=== PATIENT | male | born 1970 | race Caucasian/White ===

== ENCOUNTER 2017-11-25 10:11 | Emergency (ER) | payer SELFPAY ==
[~2017-11-25] VITALS: Ht 185.4 cm; Wt 75.0 kg
[2017-11-25 10:13] VITALS: BP 148/82; PULSE 115; RESP 18; TEMP 98.3; O2SAT 97
--- NOTE | 2017-11-25 10:31 | PD ---
HPI Chief Complaint: Injury Time Seen by Provider: 10:28 Travel History International Travel<30 days: No Contact w/Intl Traveler<30days: No Traveled to known affect area: No History of Present Illness HPI 47-year-old male comes in with 2 complaints. Patient states he stepped off a curb wrong 2 days ago causing his left foot and ankle to become painful, swelling, with ecchymosis. He is able to bear weight with a severe limp. Pain is 8 out of 10. Patient is also developed left lower jaw pain and swelling from dental issues over the past 24 hours. He denies difficulty swallowing, fever, or chills. Patient denies drainage. He has sensitivity to hot and cold. Patient has had dental abscesses in the past. Dental pain is 8 out of 10 as well. He has no known drug allergies PFSH Past Medical History Respiratory: Yes (COPD) Social History Alcohol Use: Yes Tobacco Use: Yes Substance Use: Yes Allergies-Medications (Allergen,Severity, Reaction): Coded Allergies: No Known Allergies (Unverified , 11/25/17) Review of Systems Except as stated in HPI: all other systems reviewed are Neg General / Constitutional: No: Fever, Chills Eyes: No: Visual changes HENT: Positive: Dental Difficulties, No: Headaches, Vertigo, Lightheadedness, Sore Throat, Rhinitis, Rhinorrhea, Congestion, Nosebleed, Neck Stiffness, Neck Pain, Masses, Gingival Bleeding, Ear Discharge, Earache Cardiovascular: No: Chest Pain or Discomfort Respiratory: No: Shortness of Breath Gastrointestinal: No: Abdominal Pain Genitourinary: No: Dysuria Musculoskeletal: Positive: Arthralgias, Limited ROM, Pain Skin: No Rash Neurologic: No: Weakness Psychiatric: No: Depression Endocrine: No: Polydipsia Hematologic/Lymphatic: No: Easy Bruising Physical Exam Narrative GENERAL: Patient appears in mild to moderate distress. SKIN: Warm and dry. Normal color. Normal turgor. Patient has ecchymosis to the left heel and foot. HEAD: Atraumatic. Normocephalic. EYES: Pupils equal and round. No scleral icterus. No injection or drainage. ENT: No nasal bleeding or discharge. Mucous membranes pink and moist. Patient has obvious swelling to the left lower anterior jaw with severe caries and missing teeth in the #17 through #20 tooth. Gingival swelling is noted. There is no significant lymphadenopathy. Pharynx is clear. Airways patent. NECK: Trachea midline. Supple without significant lymphadenopathy. CARDIOVASCULAR: Regular rate and rhythm. RESPIRATORY: No accessory muscle use. Clear to auscultation. Breath sounds equal bilaterally. GASTROINTESTINAL: Abdomen soft, non-tender, nondistended. Hepatic and splenic margins not palpable. MUSCULOSKELETAL: Extremities without clubbing, cyanosis, or edema. No obvious deformities. Patient has pain and swelling to the left foot and ankle suggestive of possible fracture with localized ecchymosis. No obvious deformity is noted however. Exam is limited secondary to patient's pain. He is neurovascularly intact distally. Range of motion is intact although limited by pain. NEUROLOGICAL: Awake and alert. No obvious cranial nerve deficits. Motor grossly within normal limits. Five out of 5 muscle strength in the arms and legs. Normal speech. PSYCHIATRIC: Appropriate mood and affect; insight and judgment normal. Data Data Last Documented VS Vital Signs Date Time Temp Pulse Resp B/P (MAP) Pulse Ox O2 Delivery O2 Flow Rate FiO2 11/25/17 10:13 98.3 115 18 148/82 (104) 97 Orders Orders Ankle, Complete ([id number]) (11/25/17 10:31) Foot, Complete ([id number]) (11/25/17 10:31) Ice/Cold Pack (11/25/17 10:31) Ketorolac Inj (Toradol Inj) (11/25/17 10:45) Penicillin V Potassium (Veetids) (11/25/17 10:45) Splint Or Brace Apply/Monitor (11/25/17 12:00) MDM Medical Decision Making Medical Screen Exam Complete: Yes Emergency Medical Condition: Yes Differential Diagnosis Trip and fall. Left ankle sprain. Left foot sprain. Possible fracture. Left lower jaw dental abscess. Narrative Course Patient is medically stable at time of exam Ice pack is applied to the injured area and patient is given Toradol 60 mg IM for pain. Patient is given Pen-Vee K 1000 mg p.o. now. X-rays of the left ankle and foot are ordered. X-ray both the ankle and the foot are negative for acute fracture or dislocation. Patient was placed in Laith bandage and ankle stirrup splint for support. Patient is continued on Pen-Vee K 500 mg 4 times daily for 10 days. Patient also given ibuprofen 800 mg 3 times daily #60. Patient also given Magic mouthwash as directed every 2 hours as needed dental pain 120 mL's with 1 refill. Patient to follow with dental resources as soon as possible. Patient can return with worsening symptoms as needed. Diagnosis Primary Impression: Moderate left ankle sprain Qualified Codes: S93.402A - Sprain of unspecified ligament of left ankle, initial encounter Additional Impression: Dental abscess Patient Instructions: Ankle Stirrup Splint (ED), Dental Abscess (ED), General Instructions Additional Instructions: X-ray both the ankle and the foot are negative for acute fracture or dislocation. Patient was placed in Laith bandage and ankle stirrup splint for support. Patient is continued on Pen-Vee K 500 mg 4 times daily for 10 days. Patient also given ibuprofen 800 mg 3 times daily #60. Patient also given Magic mouthwash as directed every 2 hours as needed dental pain 120 mL's with 1 refill. Patient to follow with dental resources as soon as possible. Patient can return with worsening symptoms as needed. Med/Other Pt SpecificInfo: Prescription(s) given Scripts Ibuprofen (Ibuprofen) 800 Mg Tab 800 MG PO Q8H Y for Pain/Inflammation, #60 TAB 0 Refills Prov: Misha Gonzalez MD 11/25/17 Penicillin V Potassium (Penicillin V Potassium) 500 Mg Tab 500 MG PO Q6H for Infection for 10 Days, #40 TAB 0 Refills Prov: Misha Gonzalez MD 11/25/17 Disposition: 01 DISCHARGE HOME Condition: Stable Ector Yu Nov 25, 2017 10:31
[2017-11-25] MEDS ORDERED: PENICILLIN V POTASSIUM 500 MG TAB PO ONE (10:45)
[2017-11-25] MEDS ORDERED: KETOROLAC TROMETHAMINE 60 MG/2 ML (IM) VIAL IM ONE (10:45)
--- NOTE | 2017-11-25 11:41 | RADRPT ---
EXAM DATE/TIME: 11/25/2017 11:23 [facility] COMPARISON: No previous studies available for comparison. INDICATIONS : Left foot bruising and swelling lateral side of foot MEDICAL HISTORY : None. SURGICAL HISTORY : None. ENCOUNTER: Initial ACUITY: 1 day PAIN SCORE: 8/10 LOCATION: Left foot FINDINGS: Three view examination of the left foot demonstrates no soft tissue swelling, dislocation, or fractur e. The tarsal bones appear intact. The interphalangeal and metatarsophalangeal joints are intact. The calcaneus is intact. Bony mineralization is normal. CONCLUSION: Unremarkable examination of the left foot. Zheng Rebolledo MD on November 25, 2017 at 11:39 Board Certified Radiologist. This report was verified electronically.
--- NOTE | 2017-11-25 11:42 | RADRPT ---
EXAM DATE/TIME: 11/25/2017 11:21 [facility] COMPARISON: FOOT LEFT COMPLETE ([id number]), November 25, 2017, 11:23. INDICATIONS : Left ankle pain with bruising and swelling lateral side MEDICAL HISTORY : None. SURGICAL HISTORY : None. ENCOUNTER: Initial ACUITY: 1 day PAIN SCORE: 8/10 LOCATION: Left ankle FINDINGS: Bone density is normal. Ankle mortise is approximated. Slight soft tissue swelling is seen laterally. A well corticated nonacute appearing ossific density is seen adjacent to the distal fibula. No acute fracture identified. CONCLUSION: Mild soft tissue swelling. Zheng Rebolledo MD on November 25, 2017 at 11:39 Board Certified Radiologist. This report was verified electronically.
[2017-11-25] MEDS ORDERED: PENI500T PO (12:02)
[2017-11-25] MEDS ORDERED: IBUP1TAB7 PO (12:02)
[2017-11-25] MEDS ORDERED: MAGICADU2 SWISH-SPIT (12:05)
== END 2017-11-25 12:17 | disposition home or self-care (01) ==
LOC: NEPD 10:11
DX: S93.402A Sprain of unspecified ligament of left ankle, initial encounter (principal); K04.7 Periapical abscess without sinus; X50.0XXA Overexertion from strenuous movement or load, initial encounter; Z72.0 Tobacco use
CPT/HCPCS: 73610; 73630; 96372; 99283; J1885; L1906